=== PATIENT | female | born 1960 | race Caucasian/White ===

== ENCOUNTER → 2017-01-12 | Outpatient (REF) | payer OTHER | LOC: M LAB REF 14:42 | PROVIDERS: ATTEND Physician Assistant | DX: M79.1 Myalgia (principal) ==

== ENCOUNTER → 2017-03-31 | Outpatient (REF) | payer OTHER | LOC: M SFHCWAGY 08:52 | PROVIDERS: ATTEND Nurse Practitioner Women's Health | DX: Z12.4 Encounter for screening for malignant neoplasm of cervix (principal); R87.610 Atypical squamous cells of undetermined significance on cytologic smear of cervix (ASC-US) ==

== ENCOUNTER → 2017-08-17 | Outpatient (CLI) | payer OTHER ==
[2017-08-17 14:05] LABS: BASO % 0.5 % (0.0-1.0); EOS # 0.2 10^3/uL (0.0-0.50); EOS % 3.9 % (0.0-3.0); IMMATURE GRANULOCYTE % 0.5 % (0-0); LYMPH # 1.4 10^3/uL (1.5-4.5); LYMPH % 24.2 % (24.0-44.0); MEAN CORPUSCULAR HGB CONC 33.2 g/dl (32.0-36.5); MEAN CORPUSCULAR VOLUME 90.6 fl (80.0-96.0); MONO # 0.5 10^3/uL (0.0-0.8); MONO % 7.7 % (0.0-5.0); NEUTROPHILS # 3.8 10^3/uL (1.8-7.7); NEUTROPHILS % 63.2 % (36.0-66.0); PLATELET COUNT, AUTOMATED 358 10^3/uL (150-450); RED CELL DISTRIBUTION WIDTH 12.8 % (11.5-14.5); WHITE BLOOD COUNT 5.9 10^3/uL (4.0-10.0)
[2017-08-17 14:51] LABS: ALBUMIN 3.5 GM/DL (3.2-5.2); ALBUMIN/GLOBULIN RATIO 0.92 (1.00-1.93); ALKALINE PHOSPHATASE 87 U/L (45-117); ALT/SGPT 33 U/L (12-78); ANION GAP 6 MEQ/L (8-16); AST/SGOT 17 U/L (15-37); BILIRUBIN,TOTAL 0.5 MG/DL (0.2-1.0); BLOOD UREA NITROGEN 19 MG/DL (7-18); CALCIUM LEVEL 9.3 MG/DL (8.5-10.1); CARBON DIOXIDE LEVEL 30 MEQ/L (21-32); CHLORIDE LEVEL 102 MEQ/L (98-107); CHOLESTEROL LEVEL 269 MG/DL (<200); CREATININE FOR GFR 0.76 MG/DL (0.55-1.02); FREE T4 0.97 NG/DL (0.76-1.46); GLOMERULAR FILTRATION RATE > 60.0 (>51); GLUCOSE, FASTING 91 MG/DL (70-105); POTASSIUM SERUM 4.9 MEQ/L (3.5-5.1); SODIUM LEVEL 138 MEQ/L (136-145); TOTAL PROTEIN 7.3 GM/DL (6.4-8.2); TRIGLYCERIDES LEVEL 111 MG/DL (<150); URIC ACID 5.5 MG/DL (2.6-6.0)
== END ==
LOC: M SMT 12:07
PROVIDERS: ATTEND Physician Assistant
DX: E78.2 Mixed hyperlipidemia (principal); E55.9 Vitamin D deficiency, unspecified; F32.1 Major depressive disorder, single episode, moderate; Z85.3 Personal history of malignant neoplasm of breast

== ENCOUNTER → 2017-09-26 | Outpatient (CLI) | payer OTHER ==
--- NOTE | 2017-09-28 12:27 | DEXA ---
AP SPINE L1 - L4 1.088 -0.9 -0.4 LT FEMUR TOTAL 0.774 -1.9 -1.6 RT FEMUR TOTAL 0.739 -2.1 -1.9 TOTAL BODY TOTAL OTHER DUAL FEMUR FRAX* ASSESSMENT Risk factors: 10 year probability of fracture Major osteoporotic fracture % Hip fracture % COMMENTS: There is low bone density of the spine. There is low bone density of the right hip. There is osteoporosis of the left hip. The density of the spine is decreased 1.5% since 02/28/2011. The density of the left hip has decreased 4.0% since 02/28/2011. The density of the right hip has increased 5.4% since 02/28/2011. The decreased density of the spine does not represent a significant change. The decreased density of the left hip does represent a significant change. The increased density of the right hip does represent a significant change. FOLLOW-UP: Recommendation for the next bone density exam: 2 years. KAVIN
== END ==
LOC: M WHC 11:31
PROVIDERS: ATTEND Internal Medicine Medical Oncology
DX: C50.919 Malignant neoplasm of unspecified site of unspecified female breast (principal); Z51.81 Encounter for therapeutic drug level monitoring; Z79.811 Long term (current) use of aromatase inhibitors

== ENCOUNTER → 2018-03-12 | Outpatient (REF) | payer OTHER ==
[2018-03-12 20:58] LABS: BLOOD UREA NITROGEN 13 MG/DL (7-18)
[2018-03-12 20:58] LABS: GLOMERULAR FILTRATION RATE > 60.0 (>51)
== END ==
LOC: M LABDRAW1 15:49
DX: M75.41 Impingement syndrome of right shoulder (principal)

== ENCOUNTER → 2018-04-02 | Outpatient (REF) | payer OTHER ==
[2018-04-05 14:13] LABS: HPV HYBRID CAPTURE II Negative (Negative)
== END ==
LOC: M SFHCWAGY 09:36
DX: Z12.4 Encounter for screening for malignant neoplasm of cervix (principal); N95.2 Postmenopausal atrophic vaginitis
CPT/HCPCS: G0123

== ENCOUNTER → 2018-07-10 | Outpatient (REF) | payer OTHER ==
[2018-07-10 13:34] LABS: BASO % 0.8 % (0.0-1.0); EOS # 0.2 10^3/uL (0.0-0.50); EOS % 4.6 % (0.0-3.0); HEMATOCRIT 39.5 % (36.0-47.0); HEMOGLOBIN 13.3 g/dl (12.0-15.5); IMMATURE GRANULOCYTE % 0.2 % (0-3.0); LYMPH # 1.2 10^3/uL (1.5-4.5); LYMPH % 25.7 % (24.0-44.0); MEAN CORPUSCULAR HGB CONC 33.7 g/dl (32.0-36.5); MEAN CORPUSCULAR VOLUME 89.2 fl (80.0-96.0); MONO # 0.4 10^3/uL (0.0-0.8); MONO % 8.3 % (0.0-5.0); NEUTROPHILS # 2.9 10^3/uL (1.8-7.7); NEUTROPHILS % 60.4 % (36.0-66.0); PLATELET COUNT, AUTOMATED 322 10^3/uL (150-450); RED BLOOD COUNT 4.43 10^6/uL (4.00-5.40); RED CELL DISTRIBUTION WIDTH 12.9 % (11.5-14.5); WHITE BLOOD COUNT 4.8 10^3/uL (4.0-10.0)
[2018-07-10 14:22] LABS: ALBUMIN 3.6 GM/DL (3.2-5.2); ALBUMIN/GLOBULIN RATIO 0.92 (1.00-1.93); ALKALINE PHOSPHATASE 82 U/L (45-117); ALT/SGPT 37 U/L (12-78); ANION GAP 8 MEQ/L (8-16); AST/SGOT 20 U/L (7-37); BILIRUBIN,TOTAL 0.5 MG/DL (0.2-1.0); BLOOD UREA NITROGEN 15 MG/DL (7-18); CALCIUM LEVEL 9.6 MG/DL (8.5-10.1); CARBON DIOXIDE LEVEL 30 MEQ/L (21-32); CHLORIDE LEVEL 102 MEQ/L (98-107); CHOLESTEROL LEVEL 302 MG/DL (<200); CHOLESTEROL RISK RATIO 5.592 (<5); FREE T4 0.91 NG/DL (0.76-1.46); GLOMERULAR FILTRATION RATE > 60.0 (>51); GLUCOSE, FASTING 100 MG/DL (70-100); HDL CHOLESTEROL 54 MG/DL (>40); LDL CHOLESTEROL 224.8 MG/DL (<100); NON-HDL-C 248 MG/DL; POTASSIUM SERUM 4.5 MEQ/L (3.5-5.1); SODIUM LEVEL 140 MEQ/L (136-145); TOTAL PROTEIN 7.5 GM/DL (6.4-8.2); TRIGLYCERIDES LEVEL 116 MG/DL (<150)
== END ==
LOC: M LABDRAW1 12:40
DX: Z00.01 Encounter for general adult medical examination with abnormal findings (principal); E78.2 Mixed hyperlipidemia; K21.9 Gastro-esophageal reflux disease without esophagitis

== ENCOUNTER → 2018-10-25 | Outpatient (CLI) | payer OTHER | LOC: M WHC 09:16 | DX: R93.89 Abnormal findings on diagnostic imaging of other specified body structures (principal); N80.8 Other endometriosis; R10.2 Pelvic and perineal pain | CPT/HCPCS: 76830 ==

== ENCOUNTER → 2018-11-22 | Outpatient (CLI) | payer OTHER ==
[2018-11-22 17:43] LABS: BASO # 0.1 10^3/uL (0.0-0.2); BASO % 0.8 % (0.0-1.0); EOS # 0.3 10^3/uL (0.0-0.50); EOS % 4.1 % (0.0-3.0); HEMOGLOBIN 14.2 g/dl (12.0-15.5); LYMPH # 1.5 10^3/uL (1.5-4.5); LYMPH % 24.5 % (24.0-44.0); MEAN CORPUSCULAR HEMOGLOBIN 29.8 pg (27.0-33.0); MEAN CORPUSCULAR HGB CONC 32.3 g/dl (32.0-36.5); MEAN CORPUSCULAR VOLUME 92.4 fl (80.0-96.0); MONO # 0.5 10^3/uL (0.0-0.8); MONO % 8.7 % (0.0-5.0); NEUTROPHILS # 3.7 10^3/uL (1.8-7.7); NEUTROPHILS % 61.7 % (36.0-66.0); PLATELET COUNT, AUTOMATED 417 10^3/uL (150-450); RED BLOOD COUNT 4.76 10^6/uL (4.00-5.40); WHITE BLOOD COUNT 6.1 10^3/uL (4.0-10.0)
[2018-11-22 17:45] LABS: ALBUMIN 3.8 GM/DL (3.2-5.2); ALT/SGPT 40 U/L (12-78); BILIRUBIN,TOTAL 0.3 MG/DL (0.2-1.0); BLOOD UREA NITROGEN 15 MG/DL (7-18); CALCIUM LEVEL 9.2 MG/DL (8.5-10.1); CARBON DIOXIDE LEVEL 30 MEQ/L (21-32); CHLORIDE LEVEL 103 MEQ/L (98-107); CHOLESTEROL LEVEL 301 MG/DL (<200); CREATININE FOR GFR 0.82 MG/DL (0.55-1.30); GLOMERULAR FILTRATION RATE > 60.0 (>51); GLUCOSE, FASTING 97 MG/DL (70-100); HDL CHOLESTEROL 57 MG/DL (>40); LDL CHOLESTEROL 220 MG/DL (<100); NON-HDL-C 244 MG/DL; POTASSIUM SERUM 5.1 MEQ/L (3.5-5.1); SODIUM LEVEL 138 MEQ/L (136-145); TOTAL PROTEIN 7.6 GM/DL (6.4-8.2); TRIGLYCERIDES LEVEL 121 MG/DL (<150)
[2018-11-22 17:48] LABS: TOTAL 25(OH) VITAMIN D 19.3 NG/ML (30.0-100.0)
== END ==
LOC: M SMT 11:13
PROVIDERS: ATTEND Family Medicine
DX: E55.9 Vitamin D deficiency, unspecified (principal); K21.9 Gastro-esophageal reflux disease without esophagitis; E78.2 Mixed hyperlipidemia

== ENCOUNTER → 2019-01-08 | Outpatient (CLI) | payer OTHER ==
[2019-01-08 17:32] LABS: ALBUMIN 3.6 GM/DL (3.2-5.2); ALT/SGPT 58 U/L (12-78); BILIRUBIN,DIRECT < 0.1 MG/DL (0.0-0.2); BILIRUBIN,TOTAL 0.4 MG/DL (0.2-1.0); CHOLESTEROL LEVEL 168 MG/DL (<200); CHOLESTEROL RISK RATIO 3.294 (<5); HDL CHOLESTEROL 51 MG/DL (>40); LDL CHOLESTEROL 95 MG/DL (<100); NON-HDL-C 117 MG/DL; TOTAL PROTEIN 7.3 GM/DL (6.4-8.2); TRIGLYCERIDES LEVEL 110 MG/DL (<150)
== END ==
LOC: M WUC 12:44
PROVIDERS: ATTEND Physician Assistant
DX: E78.2 Mixed hyperlipidemia (principal)

== ENCOUNTER → 2019-07-23 | Outpatient (REF) | payer OTHER ==
[2019-07-23 13:01] LABS: BASO # 0.1 10^3/uL (0.0-0.2); BASO % 0.8 % (0.0-1.0); EOS # 0.4 10^3/uL (0.0-0.5); EOS % 6.3 % (0.0-3.0); HEMATOCRIT 43.2 % (36.0-47.0); HEMOGLOBIN 13.8 g/dl (12.0-15.5); LYMPH # 1.5 10^3/uL (1.5-5.0); LYMPH % 22.3 % (24.0-44.0); MEAN CORPUSCULAR HEMOGLOBIN 29.4 pg (27.0-33.0); MEAN CORPUSCULAR HGB CONC 31.9 g/dl (32.0-36.5); MEAN CORPUSCULAR VOLUME 91.9 fl (80.0-96.0); MONO # 0.7 10^3/uL (0.0-0.8); MONO % 10.5 % (0.0-5.0); NEUTROPHILS # 3.9 10^3/uL (1.5-8.5); NEUTROPHILS % 59.8 % (36.0-66.0); PLATELET COUNT, AUTOMATED 370 10^3/uL (150-450); WHITE BLOOD COUNT 6.6 10^3/uL (4.0-10.0)
[2019-07-23 13:24] LABS: ALBUMIN 3.7 GM/DL (3.2-5.2); ALT/SGPT 33 U/L (12-78); BILIRUBIN,TOTAL 0.5 MG/DL (0.2-1.0); BLOOD UREA NITROGEN 12 MG/DL (7-18); CALCIUM LEVEL 9.3 MG/DL (8.5-10.1); CARBON DIOXIDE LEVEL 28 MEQ/L (21-32); CHLORIDE LEVEL 102 MEQ/L (98-107); CHOLESTEROL LEVEL 216 MG/DL (<200); CHOLESTEROL RISK RATIO 4.235 (<5); CREATININE FOR GFR 0.81 MG/DL (0.55-1.30); FREE T4 0.96 NG/DL (0.76-1.46); GLOMERULAR FILTRATION RATE > 60.0 (>51); GLUCOSE, FASTING 82 MG/DL (70-100); HDL CHOLESTEROL 51 MG/DL (>40); LDL CHOLESTEROL 129 MG/DL (<100); NON-HDL-C 165 MG/DL; POTASSIUM SERUM 4.7 MEQ/L (3.5-5.1); SODIUM LEVEL 138 MEQ/L (136-145); TOTAL PROTEIN 7.7 GM/DL (6.4-8.2); TRIGLYCERIDES LEVEL 179 MG/DL (<150)
[2019-07-23 13:32] LABS: TOTAL 25(OH) VITAMIN D 71.1 NG/ML (30.0-100.0)
== END ==
LOC: M LABDRAW1 09:39
PROVIDERS: ATTEND Family Medicine
DX: K21.9 Gastro-esophageal reflux disease without esophagitis (principal); E55.9 Vitamin D deficiency, unspecified; G65.2 Sequelae of toxic polyneuropathy; E78.2 Mixed hyperlipidemia

== ENCOUNTER → 2020-08-18 | Outpatient (REF) | payer OTHER | LOC: M SFHCWAGY 13:18 | PROVIDERS: ATTEND Nurse Practitioner Women's Health | DX: Z12.4 Encounter for screening for malignant neoplasm of cervix (principal) ==

== ENCOUNTER → 2020-08-26 | Outpatient (CLI) | payer OTHER ==
[2020-08-26 13:37] LABS: BASO # 0.1 10^3/uL (0.0-0.2); BASO % 0.9 % (0.0-1.0); EOS # 0.3 10^3/uL (0.0-0.5); HEMATOCRIT 43.1 % (36.0-47.0); HEMOGLOBIN 13.7 g/dl (12.0-15.5); LYMPH # 1.5 10^3/uL (1.5-5.0); LYMPH % 22.4 % (24.0-44.0); MEAN CORPUSCULAR HEMOGLOBIN 29.1 pg (27.0-33.0); MEAN CORPUSCULAR HGB CONC 31.8 g/dl (32.0-36.5); MEAN CORPUSCULAR VOLUME 91.7 fl (80.0-96.0); MONO # 0.7 10^3/uL (0.0-0.8); MONO % 9.9 % (0.0-5.0); NEUTROPHILS # 4.2 10^3/uL (1.5-8.5); NEUTROPHILS % 62.5 % (36.0-66.0); PLATELET COUNT, AUTOMATED 324 10^3/uL (150-450); WHITE BLOOD COUNT 6.8 10^3/uL (4.0-10.0)
[2020-08-26 14:11] LABS: ALBUMIN 3.7 GM/DL (3.2-5.2); ALT/SGPT 35 U/L (12-78); BILIRUBIN,TOTAL 0.7 MG/DL (0.2-1.0); BLOOD UREA NITROGEN 12 MG/DL (7-18); CALCIUM LEVEL 9.6 MG/DL (8.8-10.2); CARBON DIOXIDE LEVEL 31 MEQ/L (21-32); CHLORIDE LEVEL 101 MEQ/L (98-107); CHOLESTEROL LEVEL 195 MG/DL (<200); CHOLESTEROL RISK RATIO 3.421 (<5); CREATININE FOR GFR 0.88 MG/DL (0.55-1.30); FREE T4 1.05 NG/DL (0.76-1.46); GLOMERULAR FILTRATION RATE > 60.0 (>45); GLUCOSE, FASTING 102 MG/DL (70-100); HDL CHOLESTEROL 57 MG/DL (>40); LDL CHOLESTEROL 111 MG/DL (<100); NON-HDL-C 138 MG/DL; POTASSIUM SERUM 4.5 MEQ/L (3.5-5.1); SODIUM LEVEL 137 MEQ/L (136-145); TOTAL PROTEIN 7.6 GM/DL (6.4-8.2); TRIGLYCERIDES LEVEL 133 MG/DL (<150)
[2020-08-26 14:12] LABS: TOTAL 25(OH) VITAMIN D 24.8 NG/ML (30.0-100.0)
== END ==
LOC: M PLALAB 09:43
PROVIDERS: ATTEND Family Medicine
DX: K21.9 Gastro-esophageal reflux disease without esophagitis (principal); E78.2 Mixed hyperlipidemia; E55.9 Vitamin D deficiency, unspecified

== ENCOUNTER → 2020-08-26 | Outpatient (CLI) | payer OTHER ==
--- NOTE | 2020-08-31 10:40 | REP ---
PELVIC ULTRASOUND: 08/25/20. CLINICAL: Endometrial thickening with history of breast cancer. TECHNIQUE: Transabdominal pelvic ultrasound followed by transvaginal examination for a better evaluation of the endometrium and adnexa with color Doppler evaluation of the ovaries. FINDINGS: Heterogeneous anteverted uterus measures 6.7 x 2.8 x 4.3cm. The endometrial complex is thickened to 15mm and demonstrates sub-centimeter cystic changes which are similar to prior examination. A small amount of endocervical fluid in the lower uterine segment is also appreciated on current examination. The anterior and posterior gamez of the endometrium measure roughly 7mm each. No focal uterine or endometrial abnormalities otherwise identified. The bilateral ovaries are normal in appearance. The right ovary measures 1.0 x 0.7 x 1.1cm (RI 0.56). The left ovary measures 1.6 x 1.3 x 1.5cm. The bladder is partially collapsed. IMPRESSION: 1. Cystic changes to the endometrium similar to prior examination of 2018. 2. Endometrial thickening noted without discrete abnormality identified. MTDD
== END ==
LOC: M WHC 08:06
PROVIDERS: ATTEND Nurse Practitioner Women's Health
DX: R93.89 Abnormal findings on diagnostic imaging of other specified body structures (principal); Z79.810 Long term (current) use of selective estrogen receptor modulators (SERMs); Z85.3 Personal history of malignant neoplasm of breast

== ENCOUNTER → 2022-03-24 | Outpatient (CLI) | payer OTHER ==
[2022-03-24 17:27] LABS: BASO % 0.6 % (0.0-1.0); EOS # 0.4 10^3/uL (0.0-0.5); EOS % 5.3 % (0.0-3.0); HEMATOCRIT 38.8 % (36.0-47.0); HEMOGLOBIN 12.5 g/dl (12.0-15.5); LYMPH # 1.8 10^3/uL (1.5-5.0); LYMPH % 27.5 % (24.0-44.0); MEAN CORPUSCULAR HEMOGLOBIN 29.6 pg (27.0-33.0); MEAN CORPUSCULAR HGB CONC 32.2 g/dl (32.0-36.5); MEAN CORPUSCULAR VOLUME 91.9 fl (80.0-96.0); MONO # 0.6 10^3/uL (0.0-0.8); MONO % 9.1 % (2.0-8.0); NEUTROPHILS # 3.7 10^3/uL (1.5-8.5); NEUTROPHILS % 56.7 % (36.0-66.0); PLATELET COUNT, AUTOMATED 340 10^3/uL (150-450); RED BLOOD COUNT 4.22 10^6/uL (4.00-5.40); WHITE BLOOD COUNT 6.6 10^3/uL (4.0-10.0)
[2022-03-24 17:32] LABS: ALBUMIN 3.6 GM/DL (3.2-5.2); ALT/SGPT 24 U/L (12-78); BILIRUBIN,TOTAL 0.7 MG/DL (0.2-1.0); BLOOD UREA NITROGEN 17 MG/DL (7-18); CALCIUM LEVEL 9.7 MG/DL (8.8-10.2); CARBON DIOXIDE LEVEL 29 MEQ/L (21-32); CHLORIDE LEVEL 106 MEQ/L (98-107); CHOLESTEROL LEVEL 182 MG/DL (<200); CREATININE FOR GFR 0.79 MG/DL (0.55-1.30); FREE T4 0.93 NG/DL (0.76-1.46); GLOMERULAR FILTRATION RATE > 60.0 (>45); GLUCOSE, FASTING 78 MG/DL (70-100); HDL CHOLESTEROL 52 MG/DL (>40); LDL CHOLESTEROL 112 MG/DL (<100); NON-HDL-C 130 MG/DL; POTASSIUM SERUM 4.1 MEQ/L (3.5-5.1); SODIUM LEVEL 140 MEQ/L (136-145); TOTAL 25(OH) VITAMIN D 60.8 NG/ML (30.0-100.0); TOTAL PROTEIN 7.3 GM/DL (6.4-8.2); TRIGLYCERIDES LEVEL 91 MG/DL (<150)
== END ==
LOC: M PLALAB 14:47
PROVIDERS: ATTEND Family Medicine
DX: E78.2 Mixed hyperlipidemia (principal); E55.9 Vitamin D deficiency, unspecified

== ENCOUNTER → 2023-06-20 | Outpatient (CLI) | payer OTHER | LOC: M WHC 08:52 | PROVIDERS: ATTEND Family Medicine | DX: Z12.31 Encounter for screening mammogram for malignant neoplasm of breast (principal); Z13.820 Encounter for screening for osteoporosis; N95.0 Postmenopausal bleeding; M81.0 Age-related osteoporosis without current pathological fracture; M85.89 Other specified disorders of bone density and structure, multiple sites; R93.89 Abnormal findings on diagnostic imaging of other specified body structures; Z85.3 Personal history of malignant neoplasm of breast; E55.9 Vitamin D deficiency, unspecified; E78.2 Mixed hyperlipidemia; F32.A Depression, unspecified; G65.2 Sequelae of toxic polyneuropathy ==

== ENCOUNTER → 2023-06-20 | Outpatient (CLI) | payer OTHER ==
[2023-06-20 13:46] LABS: BASO # 0.1 10^3/uL (0.0-0.2); BASO % 0.7 % (0.0-1.0); EOS # 0.5 10^3/uL (0.0-0.5); EOS % 5.6 % (0.0-3.0); HEMATOCRIT 41.3 % (36.0-47.0); HEMOGLOBIN 13.2 g/dl (12.0-15.5); LYMPH # 1.6 10^3/uL (1.5-5.0); LYMPH % 18.9 % (24.0-44.0); MEAN CORPUSCULAR HEMOGLOBIN 29.4 pg (27.0-33.0); MONO # 0.7 10^3/uL (0.0-0.8); MONO % 8.5 % (2.0-8.0); NEUTROPHILS # 5.4 10^3/uL (1.5-8.5); NEUTROPHILS % 65.9 % (36.0-66.0); PLATELET COUNT, AUTOMATED 315 10^3/uL (150-450); RED BLOOD COUNT 4.49 10^6/uL (4.00-5.40); WHITE BLOOD COUNT 8.3 10^3/uL (4.0-10.0)
[2023-06-20 14:13] LABS: ALBUMIN 3.6 G/DL (3.2-5.2); ALKALINE PHOSPHATASE 67 U/L (46-116); ALT/SGPT 23 U/L (7.0-40); AST/SGOT 14 U/L (<34); BILIRUBIN,TOTAL 0.9 MG/DL (0.3-1.2); BLOOD UREA NITROGEN 11 MG/DL (9-23); CALCIUM LEVEL 9.4 MG/DL (8.3-10.6); CARBON DIOXIDE LEVEL 31 MMOL/L (20-31); CHLORIDE LEVEL 97 MMOL/L (98-107); CHOLESTEROL LEVEL 196 MG/DL (<200); CHOLESTEROL RISK RATIO 3.22 (<5); CREATININE FOR GFR 0.72 MG/DL (0.55-1.30); FREE T4 0.93 NG/DL (0.89-1.76); GLOMERULAR FILTRATION RATE > 60.0 (>45); GLUCOSE, FASTING 87 MG/DL (74-106); HDL CHOLESTEROL 60.8 MG/DL (>40); NON-HDL-C 135.2 MG/DL; POTASSIUM SERUM 4.3 MMOL/L (3.5-5.1); SODIUM LEVEL 133 MMOL/L (136-145); THYROID STIMULATING HORMONE 2.032 uIU/ML (0.55-4.78); TOTAL 25(OH) VITAMIN D 59.2 NG/ML (20.0-100.0); TOTAL PROTEIN 7.4 G/DL (5.7-8.2); TRIGLYCERIDES LEVEL 141 MG/DL (<150)
== END ==
LOC: M PLALAB 11:31
PROVIDERS: ATTEND Nurse Practitioner Adult Health
DX: E55.9 Vitamin D deficiency, unspecified (principal); E78.2 Mixed hyperlipidemia; F32.1 Major depressive disorder, single episode, moderate; G65.2 Sequelae of toxic polyneuropathy

== ENCOUNTER → 2023-10-10 | Outpatient (REF) | payer OTHER | LOC: M PLALAB 11:42 | PROVIDERS: ATTEND Obstetrics & Gynecology | DX: Z12.4 Encounter for screening for malignant neoplasm of cervix (principal) | CPT/HCPCS: 87624; G0123 ==

== ENCOUNTER 2025-05-14 23:57 | Emergency (ER) | payer MEDICARE, OTHER ==
[~2025-05-14] VITALS: Ht 154.9 cm; Wt 75.0 kg
[2025-05-15] MEDS: LIDOCAINE 2% MDV 20 ML VIAL SC ONE (01:35)
[2025-05-15] MEDS: NS (Normal Saline) 0.9% 1,000 ML IV ONE (02:11)
[2025-05-15] MEDS ORDERED: ISOVUE-370 76% 100 ML VIAL As Ordered ONE (05:00)
[2025-05-15] MEDS ORDERED: ROSU20TA86 (08:04)
[2025-05-15] MEDS ORDERED: BUPR-766 (08:04)
[2025-05-15] MEDS ORDERED: TRIA1CR80 (08:04)
[2025-05-15] MEDS ORDERED: PROP40TA62 (08:04)
[2025-05-15] MEDS ORDERED: RIZA10TA2 (08:04)
[2025-05-15] MEDS ORDERED: PANT40TA29 (08:04)
[2025-05-15] MEDS ORDERED: DULO1CAP6 (08:04)
[2025-05-15] MEDS ORDERED: D 50CAP2 (08:04)
[2025-05-15] MEDS ORDERED: ALEN70TA82 (08:04)
[2025-05-15] MEDS ORDERED: ASPI81TA26 (08:04)
[2025-05-15] MEDS ORDERED: GABA-1490 (08:04)
[2025-05-15 10:00] VITALS: BP 155/81; TEMP 98.1; O2SAT 97
== END 2025-05-15 09:55 | disposition home or self-care (01) ==
LOC: M ED 23:57
DX: S01.112A Laceration without foreign body of left eyelid and periocular area, initial encounter (principal); I67.1 Cerebral aneurysm, nonruptured; F10.129 Alcohol abuse with intoxication, unspecified; W18.30XA Fall on same level, unspecified, initial encounter; Y92.9 Unspecified place or not applicable; Y93.9 Activity, unspecified; Y99.9 Unspecified external cause status
CPT/HCPCS: 12011; 70450; 70496; 70498; 71045; 72125; 80047; 96360; 96361; 99284; Q9967

== ENCOUNTER → 2025-07-24 | Outpatient (CLI) | payer MEDICARE, OTHER ==
[~2025-07-24] MED LIST: ALEN70TA82; ASPI81TA26; BUPR-766; D 50CAP2; DULO1CAP6; GABA-1490; PANT40TA29; PROP40TA62; RIZA10TA2; ROSU20TA86; TRIA1CR80
== END ==
LOC: M WHC 07:44
PROVIDERS: ATTEND Family Medicine
DX: Z12.31 Encounter for screening mammogram for malignant neoplasm of breast (principal); M81.0 Age-related osteoporosis without current pathological fracture; Z85.3 Personal history of malignant neoplasm of breast; R92.323 Mammographic fibroglandular density, bilateral breasts; M85.80 Other specified disorders of bone density and structure, unspecified site

== ENCOUNTER → 2025-07-24 | Outpatient (CLI) | payer MEDICARE, OTHER ==
[2025-07-24 11:12] LABS: BASO # 0.1 10^3/uL (0.0-0.2); BASO % 1.0 % (0.0-1.0); EOS # 0.3 10^3/uL (0.0-0.5); EOS % 4.4 % (0.0-3.0); LYMPH # 1.6 10^3/uL (1.5-5.0); LYMPH % 25.2 % (24.0-44.0); MONO # 0.6 10^3/uL (0.0-0.8); MONO % 9.7 % (2.0-8.0); NEUTROPHILS # 3.8 10^3/uL (1.5-8.5); NEUTROPHILS % 59.5 % (36.0-66.0); PLATELET COUNT, AUTOMATED 291 10^3/uL (150-450)
[2025-07-24 11:43] LABS: ALT/SGPT 28.0 U/L (7.0-40); AST/SGOT 23.0 U/L (<34); CALCIUM LEVEL 9.4 MG/DL (8.3-10.6); CARBON DIOXIDE LEVEL 28.0 MMOL/L (20-31); CHLORIDE LEVEL 103.0 MMOL/L (98-107); CHOLESTEROL LEVEL 215.0 MG/DL (<200); CHOLESTEROL RISK RATIO 3.6 (<5); CREATININE FOR GFR 0.78 MG/DL (0.55-1.30); GLOMERULAR FILTRATION RATE 84.2 (>45); LDL CHOLESTEROL 132.1 MG/DL (<100); NON-HDL-C 155.3 MG/DL; POTASSIUM SERUM 4.2 MMOL/L (3.5-5.1); SODIUM LEVEL 142.0 MMOL/L (136-145); TRIGLYCERIDES LEVEL 116.0 MG/DL (<150)
[2025-07-24 11:44] LABS: FREE T4 1.12 NG/DL (0.89-1.76)
== END ==
LOC: M PLALAB 09:01
PROVIDERS: ATTEND Family Medicine
DX: E78.2 Mixed hyperlipidemia (principal); E55.9 Vitamin D deficiency, unspecified; Z12.31 Encounter for screening mammogram for malignant neoplasm of breast; M81.0 Age-related osteoporosis without current pathological fracture; Z85.3 Personal history of malignant neoplasm of breast; R92.323 Mammographic fibroglandular density, bilateral breasts; M85.80 Other specified disorders of bone density and structure, unspecified site